=== PATIENT | female | born 1950 | race Caucasian/White ===

== ENCOUNTER 2016-12-22 08:15 | Day surgery (SDC) | payer BC ==
[2016-12-14 20:23] LABS: HEMATOCRIT 43.6 % (36.0-48.0); HEMOGLOBIN 14.3 g/dL (12.0-16.0)
[2016-12-14 20:34] LABS: BUN (BLOOD UREA NITROGEN) 10 MG/DL (6-23); CALCIUM, SERUM 9.2 MG/DL (8.5-10.4); CHLORIDE, SERUM 100 MMOL/L (96-112); CO2 (CARBON DIOXIDE) 30 MMOL/L (24-34); CREATININE 0.99 MG/DL (0.55-1.02); GFR AFRICAN AMERICAN 70 ML/MIN (>=60); GFR NON AFRICAN AMERICAN 61 ML/MIN (>=60); GLUCOSE, SERUM 94 MG/DL (60-99); POTASSIUM, SERUM 4.1 MMOL/L (3.5-5.3); SODIUM, SERUM 140 MMOL/L (135-148)
--- NOTE | ~2016-12-22 | OP ---
Record Of Operation [facility] [address] [place]. [address] NAME: NELIDA ARIZMENDI : 54 STATUS : [facility]#: [id number] AGE: 66 ADM/REG DATE : 12/22/16 MR#: [id number] REPORT SERV DATE: 12/29/16 DICTATED BY: Dawn MOYA DATE: 12/28/16 REPORT STATUS : Draft TRANSCRIBED BY: SANTANA DATE: 12/28/16 DATE OF PROCEDURE: 12/22/2016 LOCATION: [facility] PREOPERATIVE DIAGNOSES: 1. Basal cell carcinoma of the right nasal tip. 2. Defect of the right nasal tip secondary to Mohs micrographic surgical excision of basal cell carcinoma. 3. Right-sided epistaxis. 4. Right intranasal lesion near the anterior portion of the inferior turbinate. POSTOPERATIVE DIAGNOSES: 1. Basal cell carcinoma of the right nasal tip. 2. Defect of the right nasal tip secondary to Mohs micrographic surgical excision of basal cell carcinoma. 3. Right-sided epistaxis. 4. Right intranasal lesion near the anterior portion of the inferior turbinate, squamous papilloma of frozen section. PROCEDURE: 1. Harvesting of full-thickness skin graft from right preauricular cheek. 2. Full-thickness reconstruction of right nasal tip defect. 3. Right intranasal cautery of nasal septal bleeding site. 4. Excision of right intranasal lesion near inferior turbinate with frozen section. 5. Reexcision of right intranasal lesion near inferior turbinate for permanent section. FINDINGS: 12 mm diameter defect of the right nasal tip, located 4 mm from the nasal ala and touching the midline of the nose; right anterior 2 mm round bleeding site on the right anterior nasal septum; 3 mm lesion located at the junction of the skin and epithelium at the anterior end of the right inferior turbinate (squamous papilloma by frozen section, additional tissue sent for permanent section). INDICATIONS: This 66-year-old female underwent Mohs micrographic surgical excision of a biopsy proven basal cell carcinoma and now presents to me for reconstruction. At a separate consultation, prior to the Mohs surgery, we discussed the pros and cons, alternatives, benefits, risks, limitations, and complications of various reconstructions. Because of the shape of her nose and the tightness of her skin, most likely her nasal flap reconstruction cannot be done and a full-thickness skin graft would be required. She also has right-sided nosebleeds and there is a bleeding site. She also has a lesion inside the nostril laterally which needs biopsying. It is smooth, but still somewhat peculiar. She understands and wishes to proceed. No guarantees expressed. We discussed the pros and cons, alternatives, benefits, risks, limitations, and complications of skin grafts which included loss of graft, mismatch of skin color, hypertrophy or depression of the graft, scarring, imponderables. She understands and wishes to proceed. Proper consent obtained. Record Of Operation [facility] [address] [place]. [address] NAME: NELIDA ARIZMENDI : 54 STATUS : [facility]#: [id number] AGE: 66 ADM/REG DATE : 12/22/16 MR#: [id number] REPORT SERV DATE: 12/29/16 DICTATED BY: Dawn MOYA DATE: 12/28/16 REPORT STATUS : Draft TRANSCRIBED BY: SANTANA DATE: 12/28/16 She also agrees to nasal cautery as well as biopsy of the lesion of the inside of the nose. She understands the risk of cautery including, but not limited to, septal perforation, recurrence of nosebleeds, imponderables. Proper consent obtained. DESCRIPTION OF PROCEDURE: She was taken into the operating room and given general oral endotracheal anesthesia in the supine position. The dressing on her nose was removed revealing the defect. The entire face was prepped with Hibiclens and saline including the nostrils which were prepped with the same solution with sterile Q-tips. The prep was then followed by isopropyl alcohol and dried. None of these solutions got in her eyes. None of the alcohol got into the wound. The defect of the right nasal tip measured 12 mm in diameter and was touching the midline and was 4 mm away from the alar rim. The skin of the nose was not sufficient to allow for flap reconstruction. I could not even harvest graft from those adequately. The defect was placed in the right preauricular cheek in the area in front of the sideburn and a fusiform ellipse marked out around this. The area was injected with 1% Xylocaine with 1:100,000 epinephrine and 0.5% Marcaine with 1:200,000 epinephrine. While this was vasoconstricting, the nasal septum on the right side was inspected and there was a 2 mm red area where the vessel was extremely close to the surface and this was cauterized lightly with the suction cautery. The right intranasal lesion was identified at the anterior end of the inferior turbinate and this was excised and sent for frozen section. It was given to the pathologist in the room. While the frozen sections were being performed, the skin graft from the right preauricular area was harvested with a #15 blade and then set aside in saline. Hemostasis was obtained with electrocautery. The donor site was closed with 5-0 Vicryl deep and Dermabond on the skin. Frozen section returned showing this to be a squamous papilloma and the pathologist advised further removal to insure that it was removed. This was reexcised, the area approximately 4 mm and it was sent to permanent pathology. This was a ring of tissue. The area was lightly cauterized with the suction cautery that we used for the nasal septum. The skin graft was appropriately defatted and cut to fit and sutured in place with interrupted 6-0 Prolene. The wound was cleansed with hydrogen peroxide and dried gently. Xeroform and Telfa were placed over the skin graft. Next, two plastic buttons were fashioned from sterile specimen cups on the field and one button was placed intranasally and the other was placed on top of the external dressing on the right nasal tip. This was secured then with the through and through suture of 4-0 Prolene and tied it gently, but securely to secure the graft in a bolster type dressing. The dressing was further secured with Mastisol and paper tape. Paper tape was also applied over the Dermabond in front of the ear on the right. She was awakened and extubated and taken to the recovery room in good condition having Record Of Operation [place] [id number] [facility] [place]. [address] NAME: NELIDA ARIZMENDI : 54 STATUS : [facility]#: [id number] AGE: 66 ADM/REG DATE : 12/22/16 MR#: [id number] REPORT SERV DATE: 12/29/16 DICTATED BY: Dawn MOYA DATE: 12/28/16 REPORT STATUS : Draft TRANSCRIBED BY: SANTANA DATE: 12/28/16 tolerated the procedure well. DARSHANA/SANTANA Dawn Moya M.D. / [id number] CC: Dawn Moya M.D.
[~2016-12-22 08:15] MED LIST: COZ50 PO; ELOCON CREAM 0.15 GM TOP; MULTIPLE VIT PO; NORV5 PO; SYSTANE OPH; VISINE TEARS15 ML OPH
== END 2016-12-22 14:44 | disposition home or self-care (01) ==
LOC: SDC 08:15
PROVIDERS: Specialist
PROC: 0HR1X73 Replacement of Face Skin with Autologous Tissue Substitute, Full Thickness, External Approach (ICD-10-PCS; principal; 2016-12-22 09:45)
PROC: 0HB1XZZ Excision of Face Skin, External Approach (ICD-10-PCS; 2016-12-22 09:45)
DX: C44.311 Basal cell carcinoma of skin of nose (principal); I10 Essential (primary) hypertension; M19.90 Unspecified osteoarthritis, unspecified site; Z88.2 Allergy status to sulfonamides; Z88.8 Allergy status to other drugs, medicaments and biological substances; Z79.899 Other long term (current) drug therapy; Z90.722 Acquired absence of ovaries, bilateral; Z98.890 Other specified postprocedural states
CPT/HCPCS: 36415; 80048; 85014; 85018; 88304; 88331; 88342; 93005; A9270-GY; J0690; J2250; J2370; J2405; J2710; J3010